=== PATIENT | female | born 1985 | race Native Hawaiian/Other Pacific Islander ===

== ENCOUNTER 2017-03-29 17:24 | Emergency (ER) | payer OTHER ==
[~2017-03-29] VITALS: Ht 162.6 cm; Wt 72.6 kg
[2017-03-29 19:08] VITALS: BP 128/84; TEMP 98.2
== END 2017-03-29 19:12 | disposition home or self-care (01) ==
LOC: ED 17:24
DX: S29.011A Strain of muscle and tendon of front wall of thorax, initial encounter (principal); X58.XXXA Exposure to other specified factors, initial encounter
CPT/HCPCS: 99283

== ENCOUNTER 2018-07-01 12:55 | Emergency (ER) | payer OTHER ==
[~2018-07-01] VITALS: Ht 162.6 cm; Wt 75.8 kg
[2018-07-01 14:15] VITALS: BP 103/64; TEMP 99.1
== END 2018-07-01 14:12 | disposition home or self-care (01) ==
LOC: ED 12:55
DX: J11.1 Influenza due to unidentified influenza virus with other respiratory manifestations (principal)
CPT/HCPCS: 87502; 87651; 99283

== ENCOUNTER 2019-11-28 11:01 | Emergency (ER) | payer OTHER ==
[~2019-11-28] VITALS: Ht 162.6 cm; Wt 73.5 kg
[2019-11-28 11:07] VITALS: TEMP 98
[2019-11-28 11:47] LABS: PLATELET COUNT 208 K/uL (152-353)
[2019-11-28 11:52] LABS: POTASSIUM 3.6 mmol/L (3.6-5.2)
[2019-11-28 12:57] VITALS: BP 110/70
== END 2019-11-28 12:59 | disposition home or self-care (01) ==
LOC: ED 11:01
PROVIDERS: General Practice
DX: K60.3 Anal fistula (principal)
CPT/HCPCS: 80053; 83605; 85027; 96372; 99283; J1885

== ENCOUNTER 2021-11-17 21:05 | Emergency (ER) | payer OTHER ==
[~2021-11-17] VITALS: Ht 162.6 cm; Wt 76.7 kg
[2021-11-17 21:57] LABS: PLATELET COUNT 209 K/uL (152-353)
[2021-11-17 22:12] LABS: POTASSIUM 3.5 mmol/L (3.6-5.2)
[2021-11-18 00:55] VITALS: BP 118/67; TEMP 97.1
== END 2021-11-18 01:00 | disposition still patient (30) ==
LOC: ED 21:05
PROVIDERS: Hospitalist
DX: T81.40XA Infection following a procedure, unspecified, initial encounter (principal); K62.89 Other specified diseases of anus and rectum; R10.84 Generalized abdominal pain; R11.2 Nausea with vomiting, unspecified; Y83.8 Other surgical procedures as the cause of abnormal reaction of the patient, or of later complication, without mention of misadventure at the time of the procedure; Y92.238 Other place in hospital as the place of occurrence of the external cause; Z53.29 Procedure and treatment not carried out because of patient's decision for other reasons
CPT/HCPCS: 36415; 80053; 80307; 80320; 81002; 81015; 81025; 83605; 83690; 85027; 87040; 96360; 96365; 96375; 99284; J1170; J2405; J2543; J3490; Q9963